=== PATIENT | female | born 1975 | race Caucasian/White ===

== ENCOUNTER 2018-01-03 06:15 | Day surgery (SDC) | payer OTHER, SELFPAY ==
[2018-01-03] VITALS (9 sets, daily range): BP systolic 106–138; BP diastolic 60–89; PULSE 61–79; RESP 10–21; TEMP 36.3–36.6; O2SAT 97–100; BMI 45.7
--- NOTE | 2018-01-03 07:12 | PM.PREOP ---
Pre-operative Note Interval Note Pre-op Check: Yes History & Physical Reviewed by Physician and Yes Exam Performed Changes: No H&P completed within 30 days and has changed as indicated here:: patient does have a migraine headache that started yesterday. she endorse these happen occasionally
[2018-01-03] MEDS: LACTATED RINGERS 1,000 ML 42 ML IV (07:15)
[2018-01-03] MEDS: CEFAZOLIN VIAL 3 GM in SODIUM CHLORIDE 0.9% 100 ML 200 ML IV (07:54)
--- NOTE | 2018-01-03 08:21 | SUR.OPER ---
Prone on padded OR bed, head in foam head support, gel chest rolls, gel pad under knees, pillow under lower legs, toes free of pressure, arms secured on padded arm boards at <90 degrees abduction. Safety belt at thigh. Tape over blanket on non operative leg.
[2018-01-03] MEDS: BUPIVACAINE 0.25% (PF) VIAL 30 ML INJ (08:59)
[2018-01-03] MEDS: fentaNYL 100 MCG/2 ML INJ 50 MCG IV ×3 (09:17→09:30)
--- NOTE | 2018-01-03 09:28 | PM.OP.1 ---
Operative Date/Time/Diagnoses Date of procedure: 01/03/18 Time of procedure: 08:15 Pre-op diagnosis: Right Achilles tendinitis ICD10 M 76.61 Morbid obesity ICD10 E66.01 (BMI 44) Post-op diagnosis: same Procedure & Clinicians Procedure: Right Achilles tendon debridement CPT code 74520 Same procedure as scheduled: Yes Indications: The patient is a 42-year-old female with a history of severe right insertional Achilles tendinitis status post debridement and repair on April 29, 2017. The patient said overall improvement but has 1 focal area of tenderness to palpation along the posterior medial incision at a location 4 cm from the base of the incision and 8 cm proximal to the plantar sole of the foot. This very focal area keeps her from wearing tennis shoes. She has had extensive conservative treatment with physical therapy, stretching, iontophoresis. She has excellent range of motion with 20? of dorsiflexion with knee extension. Postsurgical MRI demonstrated thickening consistent with her history of tendinosis as well as superficial edema posteriorly near the location of her pain. Given her extensive non operative treatment and very focal complaints at this point the patient has been indicated for a repeat limited debridement of her Achilles tendon. The risks and benefits of the procedure have been discussed with the patient even opportunity to ask questions. The risks of surgery include but are not limited to infection, persistence of pain, damage to nerves and blood vessels, DVT, PE, cardiopulmonary complications and . The patient expressed a thorough understanding of the risks and benefits of surgery and has elected to proceed. Consent was signed in the office. Surgeon: Myrtle Booker Click Yes if Unassisted: Yes Anesthesia Type: General and Local Operative Notes Findings: Previous posterior midline incision on the right Achilles was reopened. At the area previously marked out on the patient's leg 4 cm proximal to the distal aspect of the incision and 8 cm proximal to the plantar sole of the foot just medial to the midline incision, a palpable nodule of fibrosis was found. The tendon was opened and debrided in this area involving approximately the medial 30%. This was debrided back to smooth surfaces. Additional inflamed paratenon was debrided. [id number] repair with 0 Vicryl was then completed of the tendon followed by reapproximation of the paratenon 4-0 PDS. Closure Type: primary Specimen(s): none sent Implants & Drains: None Estimated Blood Loss (mL): 5 Blood products transfused: none Tourniquet time (min): 25 Procedure in detail: Procedure in detail: In the preoperative holding area, the appropriate limb and sites were marked, consent was again reviewed with the patient and all questions answered. The patient was brought to the operating room, placed on the operating table and given anesthetic. Following successful levels of anesthesia, the patient was appropriately padded, positioned prone and secured to the table. An SCD was placed on the contralateral leg. All bony prominences were well padded. A well-padded thigh tourniquet was placed. The surgical leg was then prepped and draped in the usual sterile fashion. A formal time-out procedure was completed confirming the patient, site and side of surgery and administration of appropriate preoperative antibiotics which was 3 g of Ancef. All were in agreement. An Esmarch bandage was utilized to exsanguinate the limb and the tourniquet was raised on the thigh to 300 mmHg. The previous posterior midline incision was reopened the proximal 3cm. This incision started 4 cm proximal to the distal extent of the previous incision as was marked out in the preoperative area based on the patient's location of pain. Dissection was taken down through the skin and subcutaneous tissue. Skin and subcutaneous layer was from the paratenon. The paratenon was noted to be some thickened and inflamed this was incised longitudinally and reflected medially and laterally to expose the tendon. Small area of thickened paratenon was excised. Next the Achilles tendon was inspected. This was intact without tearing however there was palpable nodules of fibrosis which appeared more prominent medial aspect of the tendon which did correspond with the area of pain. The tendon was divided longitudinally in this area and the fibrosis debrided and excised encompassing approximately 30% of the tendon width at this location. This was debrided back to smooth edges until no more prominence was palpated. The tourniquet was released and hemostasis achieved. The wound was then irrigated thoroughly with normal saline with a [id number] repair was performed with inverted and buried 0 Vicryl suture. The paratenon was then closed with 4 0 PDS and the subcutaneous tissue was closed with 4 0 Monocryl in the skin with 3 O nylon. Excellent strength and integrity of the Achilles tendon were confirmed. The incision was infiltrated with approximately 20 cc of 0.25% Marcaine for local anesthesia. Sterile dressing was placed with Xeroform gauze Webril and ABD pads. The patient was placed into a soft dressing and then to her postoperative boot. The patient was then woken from anesthesia and taken to the recovery area in good condition. There were no noted immediate complications from this procedure. All counts were correct. Complications: none Condition: stable Disposition: PACU Plan for aftercare: The patient will be partial weight-bearing with protection in her boot until the incision heals. She will use assistive devices as needed. She will follow up in the clinic as scheduled for wound inspection.
[2018-01-03] MEDS: HYDROCODONE/ACET 5/325 TABLET 1 TAB PO (09:35)
--- NOTE | 2018-01-03 10:17 | SUR.PHASEII ---
pt brought to opd, brought in discussed d/c instructions, asa start time and wearing boot to bed verified with dr vernon, pt aware to start asa tomorrow and to wear boot to bed. both voiced an understanding, pt assisted by when ready to get dressed and left when ready and left in stable condition.
--- NOTE | 2018-01-03 10:27 | SUR.PHASEI ---
late entry: pt medicated with fentanyl and vicoden, dr hernandez asked for more fentanyl, in performing block on another pt, verbal order obtained, pt rated pain 10/10 initially down to 5 going to opd.
== END 2018-01-03 10:20 | disposition home or self-care (01) ==
PROVIDERS: Family Provider Family Medicine; PCP Family Medicine; Visit Provider Orthopaedic Surgery Foot and Ankle Surgery
PROC: (CPT 27650; principal; 2018-01-03 07:45)
DX: M76.61 Achilles tendinitis, right leg (principal); M77.31 Calcaneal spur, right foot; M92.61 Juvenile osteochondrosis of tarsus, right ankle; E66.01 Morbid (severe) obesity due to excess calories; Z68.41 Body mass index [BMI] 40.0-44.9, adult
CPT/HCPCS: 11043; J0330; J0690; J1100; J1885; J2250; J2405; J2704; J3010